=== PATIENT | female | born 1980 | race Caucasian/White ===

== ENCOUNTER 2020-06-17 16:35 | Outpatient (CLI) | payer OTHER, SELFPAY ==
[2020-06-17 17:09] LABS: CRP < 0.5 mg/dL (<1.0); Uric Acid 4.3 mg/dL (2.5-7.5)
[2020-06-17 17:11] LABS: Rheumatoid Factor < 8.6 IU/ML (<12)
[2020-06-17 17:18] LABS: Erythrocyte Sedimentation Rate 14 mm/hr (0-20)
[2020-06-22 11:03] LABS: HLA B27 Negative (Negative)
[2020-06-25 05:09] LABS: Cryoglobulin, QL Negative (Negative)
== END 2020-06-17 16:36 | disposition home or self-care (01) ==
LOC: ANHLAB 16:38
PROVIDERS: PCP Family Medicine; Visit Provider Podiatrist Foot & Ankle Surgery
DX: M19.90 Unspecified osteoarthritis, unspecified site (principal)
CPT/HCPCS: 36415; 82595; 84550; 85652; 86038; 86140; 86430; 86812

== ENCOUNTER 2020-08-25 12:10 | Outpatient (CLI) | payer OTHER, SELFPAY ==
--- NOTE | ~2020-08-25 | XR_ITS ---
EXAMINATION: XR chest 2V 08/25/2020 12:25 INDICATION: Acute upper respiratory infection PROCEDURE: 2 view chest COMPARISON: No prior studies for comparison. FINDINGS: The lungs are clear. The cardiomediastinal silhouette is within normal limits. There are no pleural effusions. There is no pneumothorax suspected. IMPRESSION: 1: NO ACUTE CARDIOPULMONARY DISEASE. Reviewed, dictated and finalized at location A.
== END 2020-08-25 12:11 | disposition home or self-care (01) ==
PROVIDERS: PCP Family Medicine; Visit Provider Nurse Practitioner Family
DX: J06.9 Acute upper respiratory infection, unspecified (principal)
CPT/HCPCS: 71046

== ENCOUNTER → 2021-07-01 14:42 | Outpatient (CLI) | payer OTHER, SELFPAY ==
--- NOTE | ~2021-07-01 | XR_ITS ---
XR foot RT min 3V DATE: 07/01/2021 16:29 INDICATION: Right foot swelling and pain TECHNIQUE: 4 views COMPARISON: None FINDINGS: There is slight plantar and slight posterior calcaneal enthesopathy. No fracture, dislocation, periosteal reaction or bone destruction. No erosive change. IMPRESSION: Slight plantar and posterior calcaneal enthesopathy Reviewed, dictated and finalized at location A.
== END ==
PROVIDERS: PCP Family Medicine
DX: M79.89 Other specified soft tissue disorders (principal); M77.31 Calcaneal spur, right foot
CPT/HCPCS: 73630

== ENCOUNTER 2022-08-18 12:47 | Outpatient (CLI) | payer OTHER, SELFPAY ==
--- NOTE | ~2022-08-18 | MMUS_ITS ---
EXAMINATION: MM diagnostic fredis BI w l[place], US breast LT limited HISTORY: Patient with history of painful palpable lump in the upper outer quadrant of the left breast near the nipple with improvement post antibiotic therapy. TECHNIQUE: Craniocaudal, mediolateral, and mediolateral oblique 3-D tomosynthesis images of the breas ts were performed and synthetic 2-D images were generated. CAD analysis was submitted and interpreted . High resolution limited left breast ultrasound was performed. COMPARISON: No prior mammogram is currently available for comparison at this institution BREAST PARENCHYMAL COMPOSITION: The breasts are heterogeneously dense, which may obscure small masses . FINDINGS: MAMMOGRAPHIC FINDINGS: No suspicious mass, calcification, or architectural distortion are identified in either breast to sug gest malignancy. No mammographic correlate is identified for the reported palpable abnormality of the left breast. ULTRASOUND: There is no evidence of focal abnormal solid or cystic mass in the vicinity of the reported palpable abnormality of the left breast. IMPRESSION: 1. No specific mammographic or sonographic correlate is identified for the reported palpable abnormal ity of concern. Further evaluation at this time should be based on clinical assessment. Continued fol low-up physical examination is recommended. 2. Recommend routine screening mammography in one year. BI-RADS Category 1: Negative Reviewed, dictated and finalized at location A. IMPRESSION: 1. No specific mammographic or sonographic correlate is identified for the repo rted palpable abnormality of concern. Further evaluation at this time should be based on clinical assessment. Continued follow-up physical examination is irma mmended. 2. Recommend routine screening mammography in one year. BI-RADS Category 1: Negative
== END 2022-08-18 12:48 | disposition home or self-care (01) ==
LOC: ANHIMG 12:48
PROVIDERS: PCP Family Medicine; Visit Provider Obstetrics & Gynecology
DX: N63.20 Unspecified lump in the left breast, unspecified quadrant (principal); N60.02 Solitary cyst of left breast
CPT/HCPCS: 76642; 77062; 77066; G0279

== ENCOUNTER 2023-03-15 01:30 | Day surgery (SDC) | payer OTHER, SELFPAY ==
[2023-03-13 11:26] VITALS: BMI 37.2
--- NOTE | 2023-03-13 11:30 | PC.NURSE ---
Report to the Outpatient Waiting Room, entrance under the green pavilion located off [facility], at time 6:30 on date 03/15/23. Planned Procedure Time: 8:30. Time changes happen often and if your time is changed the preop area will call you the afternoon before. - You and your visitor will be asked to self-screen and do not enter if you have any COVID symptoms. - A mask is optional within the hospital at this time. Patients may have clear liquids (water, carbonated beverages, clear teas, apple juice) until 3 hours prior to surgery (5:30) with a maximum of 20 ounces. - No food from midnight until time of surgery Take the following medications with a SIP of water the morning of surgery: NONE DO NOT STOP ANY OF YOUR OTHER PRESCRIPTION MEDICATIONS PRIOR TO SURGERY ?EXCEPT THE FOLLOWING Medications to discontinue per physician: VITAMINS Date to take last dose: NO MORE UNTIL AFTER SURGERY Please no make-up, nail kinyarwanda, hairspray, perfume, deodorant, or body powder the day of surgery. No jewelry (including any body piercings) or valuables the day of surgery, leave them at home. Please take a shower or bath the night before, or the morning of, surgery with an antibacterial soap. Wear comfortable, loose fitting clothing. - Jewelry must be removed prior to entering the operating room. Rings and piercings that are not removed may be cut off. - The hospital will not accept responsibility for valuables. - Please leave all valuables, including medications, at home the day of surgery. If you are going home after surgery, a licensed yard driver must drive you home. - NO public transportation without another adult if you receive anesthesia. - We recommend that an adult stay with you for 24 hours following discharge. - We also recommend that you do not drive, make important decision, drink alcoholic beverages, or take any drugs that were not prescribed by your health care provider for at least 24 hours after your discharge time. Follow any additional instructions given to you from your surgeon. If you or anyone in your household have experienced Covid symptoms in the past week, please notify your surgeon or the nurse liaison at the phone number below for possible testing. Telephone instructions given to PT - NAINA CALDWELL and asked if any additional questions and then verbalized understanding. Patient advised to call surgeon office or pre surgery nurse liaison [phone] if any additional questions.
--- NOTE | 2023-03-14 16:32 | PM.IMHP ---
H&P: HPI History of Present Illness Date/Time: 03/14/23 16:32 41-year-old female presents for evaluation of heavy, painful menstrual cycles. She states over approximate last year she has been having cycles lasting 7-10 days with 3-4 days very heavy with significant amount of cramping and clotting, has been anemic in the past as well. States she had an ultrasound which shows enlarged uterus with multiple fibroids this was done in outside institution which I do not have a copy of. She did have a recent ultrasound which did show enlarged uterus at 10-12 week size though no specific fibroids were noted. She also states that intermenstrual bleeding does not occur of significance though she does have cramping during that time as well she states her activities of daily living she is not able to continue with this during a menstrual cycle especially on the particularly heavy days. Of significant she also has had 3 prior deliveries. No other significant surgical history of note. Chief Complaint: Menometrorrhagia Review of Systems Review of Systems: All systems reviewed & are unremarkable except as noted in HPI and below PMFSH Past Medical History Medical History Anxiety BMI 37.0-37.9, adult Cyst of left breast Eyelid dermatitis, allergic/contact Screening mammogram, encounter for Yeast infection of the vagina Surgical History Surgical History History of x 3 Family History Family History Mother Diabetes mellitus Hypertension Asthma Family history of cardiovascular disease Congestive heart failure Father Hypertension Sibling Cerebrovascular accident Paralysis Anxiety Social History Social History Smoking status: Never smoker Second hand tobacco smoke exposure: Yes Smoking end date: 02/02/04 Alcohol intake: current Drinks per week: 6 Alcohol use details: VERY RARE Substance use: never Substance use type: does not use Lack of Transportation: No Lack of Food: Never True Current Housing: I Have Housing Concerned About Future Housing: No Difficulty Paying Gas/Electric Bills: No Difficulty Paying for Meds: No Currently Unemployed: No Education: Master's Degree or Higher Difficulty w/ Childcare or Family Care: No Living arrangements: with family Additional living arrangements comments: Occupation/Education: occupation Gender identity (if verbalized by the patient): Female Sexual Orientation (if Verbalized by the Patient): Straight or Heterosexual Spiritual care concerns: No Meds Home Medications and Allergies Home Medications Medication Instructions Recorded Confirmed Type fluticasone propionate 50 2 spray intranasal BID 05/11/21 03/13/23 History mcg/actuation nasal spray,suspension cetirizine 10 mg tablet (Zyrtec) 10 mg PO DAILY 03/13/23 03/13/23 History ferrous sulfate 325 mg (65 mg 325 mg PO DAILY 03/13/23 03/13/23 History iron) tablet (Iron (ferrous sulfate)) magnesium 250 mg tablet 250 mg PO DAILY 03/13/23 03/13/23 History Allergies Allergy/AdvReac Type Severity Reaction Status Date / Time No Known Allergies Allergy Verified 03/13/23 11:25 Exam Const: General: cooperative and healthy appearing Resp: Effort & Inspection: normal respiratory effort Auscultation: clear to auscultation bilaterally Cardio: Rate: regular rate Rhythm: regular rhythm GI: Inspection: normal to inspection and scar ( Well-healed) GI Palp: No abdominal tenderness Auscultation: normal bowel sounds : External Female Exam: normal external appearance Speculum Exam - Vagina: normal appearance of the vagina Speculum Exam - Cervix: normal appearance of the cervix Bimanual exam- vagina & uterus: enlar
[2023-03-15] VITALS (11 sets, daily range): BP systolic 107–137; BP diastolic 53–70; PULSE 67–85; RESP 16–18; TEMP 36.4–36.6; O2SAT 99–100
--- NOTE | 2023-03-15 06:51 | WPDHPUPDATE1 ---
History and Physical Update Update Date/Time: 03/15/23 06:51 History and Physical has been reviewed, including an updated exam of the patient. There are NO changes in the patient's condition. Risks, benefits, and alternatives have been discussed and questions answered. Patient agrees to proceed with procedure.
--- NOTE | 2023-03-15 06:51 | WPDANESEPPF ---
Anes - Initial Pre Proc Eval Procedure: Operation Date: 03/15/23 08:30 Proposed Procedures p Robotic Assisted Total Laparoscopic Hysterectomy with Bilateral Salpingectomy - Satish Fowler MD Date/Time: 03/15/23 06:51 Surgeon: Satish Fowler MD Pre Op Diagnosis: menometrorrhagia Patient Data Age: 42 Gender: F Height: 1.6 m Weight: 95.3 kg Allergies Allergy/AdvReac Type Severity Reaction Status Date / Time No Known Allergies Allergy Verified 03/13/23 11:25 Home Medications Medication Instructions Recorded Confirmed Type fluticasone propionate 50 2 spray intranasal BID 05/11/21 03/13/23 History mcg/actuation nasal spray,suspension cetirizine 10 mg tablet (Zyrtec) 10 mg PO DAILY 03/13/23 03/13/23 History ferrous sulfate 325 mg (65 mg 325 mg PO DAILY 03/13/23 03/13/23 History iron) tablet (Iron (ferrous sulfate)) magnesium 250 mg tablet 250 mg PO DAILY 03/13/23 03/13/23 History Patient hx anesthesia problems: none Family hx anesthesia problems: none Results Review: All pre-operative results and documents have been reviewed as part of the pre-operative evaluation. [facility] Past Medical History Medical History Anxiety BMI 37.0-37.9, adult Cyst of left breast Eyelid dermatitis, allergic/contact Screening mammogram, encounter for Yeast infection of the vagina Surgical History Surgical History History of x 3 Family History Family History Mother Diabetes mellitus Hypertension Asthma Family history of cardiovascular disease Congestive heart failure Father Hypertension Sibling Cerebrovascular accident Paralysis Anxiety Social History Social History Smoking status: Never smoker Second hand tobacco smoke exposure: Yes Smoking end date: 02/02/04 Alcohol intake: current Drinks per week: 6 Alcohol use details: VERY RARE Substance use: never Substance use type: does not use Lack of Transportation: No Lack of Food: Never True Current Housing: I Have Housing Concerned About Future Housing: No Difficulty Paying Gas/Electric Bills: No Difficulty Paying for Meds: No Currently Unemployed: No Education: Master's Degree or Higher Difficulty w/ Childcare or Family Care: No Living arrangements: with family Additional living arrangements comments: Occupation/Education: occupation Gender identity (if verbalized by the patient): Female Sexual Orientation (if Verbalized by the Patient): Straight or Heterosexual Spiritual care concerns: No Anes - Eval Final PreProcedure Day of Procedure 03/15/23 06:51 Patient weight: obese Heart: regular rate and rhythm Lungs: clear to auscultation Airway: Mallampati scale class II Neurological: alert and oriented Last oral intake: >/= 8 hours ASA classification: II Emergent: no Anesthetic plan: proceed Anesthesia type and monitoring: general ETT and standard monitoring Results Review: All pre-operative results and documents have been reviewed as part of the pre-operative evaluation. Informed Consent: The patient's anesthetic plan and its attendant risks and benefits were discussed with the patient/family/POA. Questions were solicited and answers provided to the satisfaction of the patient/family/POA.
[2023-03-15] MEDS: LACTATED RINGERS 1,000 ML 30 ML IV CONT ×2 (07:30→09:46)
[2023-03-15] MEDS: SCOPOLAMINE 1.5 MG PATCH TRANSDERM (07:38)
[2023-03-15] MEDS: KETOROLAC 15 MG/ML VIAL (*BKC) IV PUSH (07:38)
[2023-03-15] MEDS: ACETAMINOPHEN 500 MG TABLET 1000 MG PO (07:39)
[2023-03-15 07:52] LABS: Hematocrit 37.5 % (37.0-47.0); Hemoglobin 12.4 g/dL (12.0-15.0); Mean Corpuscular HGB Conc 33.1 g/dl (32-36); Mean Corpuscular Hemoglobin 32.5 pg (26-34); Mean Corpuscular Volume 98.2 fl (80-100); Mean Platelet Volume 10.7 fl (7.4-10.4); Platelet Count Result 152 k/mm3 (150-375); Red Blood Count 3.82 M/mm3 (4.2-5.4); Red Cell Distribution Width 11.9 % (11.5-14.5); White Blood Count 4.7 K/mm3 (4.5-10.0)
[2023-03-15] MEDS: ceFAZolin 2 GM/D5W 50 ML 2 GM/50 ML BAG IVPB (08:10)
[2023-03-15] MEDS: METHYLENE BLUE 0.5% INJ 10 ML AMPULE 5 ML IRRIGATION (09:00)
--- NOTE | 2023-03-15 09:35 | W.PM.PROC2 ---
Procedure Note - Detailed Date of Procedure 03/15/23 Pre-op Diagnosis menometrorrhagia Post-op Diagnosis Same Procedure Performed Robotic assisted total hysterectomy with bilateral salpingectomy Surgeon Satish Fowler MD Anesthesia General Findings Uterus mildly enlarged, ovaries and tubes without abnormality, bladder adhesions to anterior portion of the uterus. Minimal other adhesions throughout the pelvis. Description of Procedure Patient was prepped draped usual manner for this procedure. Cervical instruments were placed for uterine mobility throughout case. Abdominal trocar sites were marked and placed under direct visualization. These trocars were then attached to the Pat system instruments were placed. Surgeon moved to the console with findings as noted above. Round ligaments were cauterized and cut and bladder flap was developed without significant difficulty. Posterior leaf the broad ligament was also incised to really the uterine vessels. The bladder was back filled with 200cc of fluid to evaluate bladder integrity and there was no spill. Mesial salpinx was cauterized and cut and tubes removed without difficulty separate from the uterus. Uterine vessels were cauterized and cut and after the vascularity/blood supply to the uterus was cauterized the anterior colpotomy incision was made this carried circumferentially to remove the cervix from the vagina. Uterus was delivered into the vagina without difficulty. The lock suture was then used to approximate vaginal cuff from the right angle past midline. Then the left angle to past midline. Irrigation was undertaken there was no bleeding. Bladder was again back filled with 200cc and no damage noted. Isra was placed empirically over the vaginal cuff, gas was allowed to escape, trocars removed, and incisions approximated using 4-0 Monocryl. Patient was then sent to recovery room in stable condition. Estimated Blood Loss 100 Drains No Packing No Pathology Yes Complications No immediate complications Condition Stable Disposition PACU [facility] Billing Surgery - Charge Forward: Surgery Billing
[2023-03-15] MEDS: fentaNYL CITRATE INJ (*CRX) 100 MCG/2 ML VIAL 25 MCG IV PUSH ×3 (10:19→10:52)
--- NOTE | 2023-03-15 10:23 | SUR.PHASEI ---
1023: Simple mask removed.
--- NOTE | 2023-03-15 11:02 | PC.NURSE ---
This patient, Mara Patel, was received from PACU on 03/15/23 at 11:02. Patient/family oriented to unit policies and routines
[2023-03-15] MEDS: DEXTROSE 5%/0.45% SOD CHL 1,000 ML 125 ML IV CONT (11:18)
[2023-03-15] MEDS: KETOROLAC 30 MG/ML VIAL (*BKC) IV PUSH (11:25)
[2023-03-15] MEDS: SIMETHICONE 80 MG TAB.CHEW PO ×4 (11:25→19:08)
[2023-03-15] MEDS: HYDROcodone/acetaminophen (*CRX) 10-325 MG TABLET 1 TAB PO ×4 (12:18→22:15)
[2023-03-15] MEDS: FLUTICASONE PROPIONATE 0.05% NA SPR 16 GM BTL (*BKC) 2 SPRAY NASAL (17:25)
[2023-03-15] MEDS: IBUPROFEN 600 MG TABLET PO ×2 (17:25→22:15)
--- NOTE | 2023-03-15 18:04 | PC.NURSE ---
Eric Mathew RN License pending did chart on this patient under Leeroy Lopez RN, all charting has been checked by Leeroy Lopez RN.
[2023-03-16] MEDS: ZOLPIDEM TARTRATE (*CRX) 5 MG TABLET PO (00:20)
[2023-03-16 04:10] VITALS: BP 126/73; PULSE 81; RESP 16; TEMP 36.8; O2SAT 100
[2023-03-16] MEDS: HYDROcodone/acetaminophen (*CRX) 10-325 MG TABLET 1 TAB PO ×2 (04:10→08:00)
[2023-03-16] MEDS: IBUPROFEN 600 MG TABLET PO (04:10)
[2023-03-16 04:37] LABS: Basophils Percent Auto 0.1 % (0.2-1.2); Hematocrit 33.8 % (37.0-47.0); Immature Granulocyte Absolute 0.03 K/mm3 (0.00-0.031); Immature Granulocyte Percent A 0.4 % (0-0.5); Lymphocytes Absolute Auto 2.04 K/mm3 (0.9-3.2); Lymphocytes Percent Auto 24.1 % (18.3-44.2); Mean Corpuscular HGB Conc 32.5 g/dl (32-36); Mean Corpuscular Hemoglobin 31.9 pg (26-34); Mean Platelet Volume 10.4 fl (7.4-10.4); Monocytes Absolute Auto 0.6 K/mm3 (0.1-0.6); Neutrophils Absolute Auto 5.8 K/mm3 (1.3-6.7); Neutrophils Percent Auto 68.4 % (45.5-73.1); Platelet Count Result 146 k/mm3 (150-375); Red Blood Count 3.45 M/mm3 (4.2-5.4); White Blood Count 8.5 K/mm3 (4.5-10.0)
[2023-03-16 07:40] VITALS: BP 99/65; PULSE 72; RESP 18; TEMP 36.8; O2SAT 100
[2023-03-16] MEDS: DOCUSATE SODIUM 100 MG CAPSULE PO (08:00)
[2023-03-16] MEDS: LORATADINE 10 MG TABLET PO (08:00)
[2023-03-16] MEDS: MAGNESIUM OXIDE 200 MG TABLET PO (08:00)
[2023-03-16] MEDS: FLUTICASONE PROPIONATE 0.05% NA SPR 16 GM BTL (*BKC) 2 SPRAY NASAL (08:02)
--- NOTE | 2023-03-16 08:22 | WPDANESPN ---
Anes - Prog Note Post-Op Date/Time: 03/16/23 08:22 Cardiovascular status: normal Respiratory status: normal Airway patency: baseline Mental status: baseline Post-Op hydration status: normal Vital Signs: Last Vital Signs Temp 98.3 F 03/16/23 04:10 Pulse 81 03/16/23 04:10 Resp 16 03/16/23 04:10 BP 126/73 03/16/23 04:10 Pulse Ox 100 03/16/23 04:10 O2 Del Method Room Air 03/16/23 04:10 O2 Flow Rate 8 03/15/23 10:15 Pain Score (VAS): 0/10 I/O: Intake & Output 03/15/23 03/16/23 03/16/23 23:59 07:59 15:59 Intake Total 537 Output Total 1200 Balance -663 Laboratory Tests 03/16/23 04:13 03/15/23 03/16/23 07:22 04:13 WBC 8.5 RBC 3.45 L Hgb 11.0 L Hct 33.8 L MCV 98.0 MCH 31.9 MCHC 32.5 RDW 12.0 Plt Count 146 L MPV 10.4 Immature Gran % (Auto) 0.4 Neut % (Auto) 68.4 Lymph % (Auto) 24.1 [place] % (Auto) 7.0 Eos % (Auto) 0.0 Baso % (Auto) 0.1 L Lymph # (Auto) 2.04 [place] # (Auto) 0.6 Eos # (Auto) 0.0 Baso # (Auto) 0.0 Abs Immat Gran (auto) 0.03 Absolute Neuts (auto) 5.8 Absolute Nucleated RBC 0.0 Nucleated RBC % 0.0 Blood Type A Positive Antibody Screen Negative Post-procedural complaints: none Patient Feedback: Patient satisfied with anesthetic care.
== END 2023-03-16 09:35 | disposition home or self-care (01) ==
LOC: ANHSURGERY 06:35 → ANHOB2 10:55
PROVIDERS: PCP Family Medicine; Visit Provider Obstetrics & Gynecology
PROC: (CPT 58571; principal; 2023-03-15 08:30)
DX: N92.1 Excessive and frequent menstruation with irregular cycle (principal); N87.9 Dysplasia of cervix uteri, unspecified; N88.8 Other specified noninflammatory disorders of cervix uteri; N80.00 Endometriosis of the uterus, unspecified; N83.8 Other noninflammatory disorders of ovary, fallopian tube and broad ligament; N73.6 Female pelvic peritoneal adhesions (postinfective); E66.9 Obesity, unspecified; Z68.37 Body mass index [BMI] 37.0-37.9, adult
CPT/HCPCS: 58571; S2900; 36415; 85025; 85027; 86850; 86900; 86901; 88307; 99199; A9270; J0690; J1100; J1170; J1200; J1885; J2250; J2405; J2704; J3010; J7030; J7120; Q9968

== ENCOUNTER 2023-09-10 08:23 | Outpatient (CLI) | payer OTHER, SELFPAY ==
--- NOTE | ~2023-09-10 | MM_ITS ---
EXAMINATION: MM screening fredis BI w [place] HISTORY: Screening TECHNIQUE: Craniocaudal and mediolateral oblique 3-D tomosynthesis images were obtained and synthetic 2-D images were generated. CAD analysis was submitted and interpreted. COMPARISON: No prior mammogram is available for comparison at this institution. BREAST PARENCHYMAL COMPOSITION: 08/18/2022. FINDINGS: There is no evidence of suspicious mass, calcification, or architectural distortion to sugg est malignancy in either breast. There has been no suspicious interval change. IMPRESSION: 1. No mammographic evidence of malignancy. 2. Recommend routine screening mammography in one year. BI-RADS Category 1: Negative Reviewed, dictated and finalized at location B.
== END 2023-09-10 08:24 | disposition home or self-care (01) ==
LOC: CHSIMG 08:24
PROVIDERS: PCP Family Medicine; Visit Provider Obstetrics & Gynecology
DX: Z12.31 Encounter for screening mammogram for malignant neoplasm of breast (principal)
CPT/HCPCS: 77063; 77067